=== PATIENT | female | born 1930 | race Caucasian/White ===

== ENCOUNTER 2018-07-17 20:17 | Outpatient (CLI) | payer MEDICARE, OTHER | END 2018-07-17 20:18 | disposition critical access hospital (66) | LOC: EMS 20:17 | PROVIDERS: ATTEND Surgery | DX: R55 Syncope and collapse (principal) | CPT/HCPCS: A0425; A0427 ==

== ENCOUNTER 2018-07-17 20:56 | Emergency (ER) | payer MEDICARE, OTHER ==
--- NOTE | 2018-07-17 21:10 | ED Physician Documentation ---
PD HPI SYNCOPE - Stated complaint Stated Complaint: SYNCOPE - History obtained from History obtained from: Patient - History of Present Illness Witnessed: Unwitnessed Timing - onset: Today Duration: Seconds Preceding symptoms: Light headed, Generalized weakness. No: Headache, Chest pain, Palpitations, Dyspnea, Abdominal pain Associated symptoms: No: Seizure, Incontinant of urine, Chest pain, Dyspnea, Abdominal pain Contributing factors: Just stood up. No: Recent med change, Decreased PO intake Injury occurred: Fell. No: Head injury, Neck injury Similar symptoms before: Diagnosis (had dyspnea and chest pain with lightheadedness when she had PE few years ago. Did not have syncope per se.) Recently seen: Not recently seen Review of Systems Constitutional: denies: Fever, Chills, Myalgias Nose: denies: Rhinorrhea / runny nose, Congestion Throat: denies: Sore throat Cardiac: denies: Chest pain / pressure, Palpitations Respiratory: denies: Cough GI: denies: Nausea, Vomiting, Diarrhea : denies: Dysuria Skin: denies: Rash, Lesions Musculoskeletal: denies: Neck pain, Back pain Neurologic: denies: Focal weakness, Numbness, Altered mental status, Headache Psychiatric: reports: Depressed PD PAST MEDICAL HISTORY - Past Medical History Cardiovascular: High cholesterol, Other Respiratory:  Endocrine/Autoimmune: None GI: None : None HEENT: None Psych: Anxiety Musculoskeletal: None Derm: None - Past Surgical History Past Surgical History: Yes General: Colonoscopy HEENT: Tonsil/Adenoidectomy Derm: Skin cancer surgery - Present Medications Home Medications: Ambulatory Orders Medication Instructions Recorded Confirmed Escitalopram [Lexapro] 10 mg PO DAILY 10/03/15 10/04/15 Guaifenesin [Mucinex] 1 tab PO BID 10/03/15 10/04/15 Oxycodone HCl 10 mg PO PRN PRN 10/03/15 10/03/15 Pravastatin Sodium [Pravachol] 40 mg PO DAILY 10/03/15 10/04/15 Rivaroxaban [Xarelto] 20 mg PO DAILY 10/03/15 10/04/15 - Allergies Allergies/Adverse Reactions: Allergies Allergy/AdvReac Type Severity Reaction Status Date / Time Sulfa (Sulfonamide Allergy Rash Verified 11/09/12 15:30 Antibiotics) - Social History Does the pt smoke?: No Smoking Status: Former smoker Does the pt drink ETOH?: Yes Does the pt have substance abuse?: No - POLST Patient has POLST: No PD ED PE NORMAL - Vitals Vital signs reviewed: Yes (appears younger than stated age. ) - General General: Alert and oriented X 3, No acute distress, Well developed/nourished - HEENT HEENT: Pharynx benign - Neck Neck: Supple, no meningeal sign, No adenopathy, No JVD - Cardiac Cardiac: RRR, No murmur - Respiratory Respiratory: Clear bilaterally - Abdomen Abdomen: Soft, Non tender - Back Back: No CVA TTP - Derm Derm: Normal color, Warm and dry - Extremities Extremities: No deformity, No tenderness to palpate, Normal ROM s pain - Neuro Neuro: Alert and oriented X 3, No motor deficit, Normal speech Results - Vitals Vitals: Vital Signs - 24 hr 07/17/18 07/17/18 07/17/18 23:13 23:17 23:52 Heart Rate 55 L Heart Rate [ 56 L Sitting] Heart Rate [ 65 Standing] Heart Rate [ 55 L Supine] Respiratory 16 16 Rate Blood Pressure 123/73 Blood Pressure 138/69 H [Sitting] Blood Pressure 124/68 [Standing] Blood Pressure 130/67 [Supine] O2 Saturation 99 Oxygen O2 Source Room air - EKG (time done) 20:59 Rate: Rate (enter#) (58) Rhythm: Sinus bradycardia [place]: Normal Intervals: Normal [place] QRS: Normal Ischemia: Normal ST segments. No: ST elevation c/w ischemia, ST depression - Labs Labs: Laboratory Tests 07/17/18 07/17/18 07/17/18 22:30 22:30 22:30 WBC 8.0 RBC 4.95 Hgb 14.8 Hct 45.2 MCV 91.2 MCH 29.9 MCHC 32.8 RDW 14.2 Plt Count 216 MPV 10.0 Neut # (Auto) 6.2 Lymph # (Auto) 1.2 L [place] # (Auto) 0.4 Eos # (Auto) 0.1 Baso # (Auto) 0.1 Absolute Nucleated RBC 0.01 Nucleated RBC % 0.1 D-Dimer Sodium 136 Potassium 3.6 Chloride 99 L Carbon Dioxide 24 Anion Gap 13.0 BUN 19 Creatinine 1.0 Estimated GFR (MDRD) 53 L Glucose 98 Calcium 9.8 Magnesium 2.4 Iron 36 TIBC 315 % Saturation 11 L Transferrin 225 Total Bilirubin 0.4 AST 26 ALT 28 Alkaline Phosphatase 69 Troponin I < 0.04 B-Natriuretic Peptide Total Protein 7.8 Albumin 4.3 Globulin 3.5 Albumin/Globulin Ratio 1.2 Lipase 32 07/17/18 07/17/18 22:30 22:50 WBC RBC Hgb Hct MCV MCH MCHC RDW Plt Count MPV Neut # (Auto) Lymph # (Auto) [place] # (Auto) Eos # (Auto) Baso # (Auto) Absolute Nucleated RBC Nucleated RBC % D-Dimer 183.7 L Sodium Potassium Chloride Carbon Dioxide Anion Gap BUN Creatinine Estimated GFR (MDRD) Glucose Calcium Magnesium Iron TIBC % Saturation Transferrin Total Bilirubin AST ALT Alkaline Phosphatase Troponin I B-Natriuretic Peptide 40 Total Protein Albumin Globulin Albumin/Globulin Ratio Lipase PD MEDICAL DECISION MAKING - ED course Complexity details: reviewed results, re-evaluated patient (she is feeling well here and subsequent postural vital signs showed normal labs. ), considered differential, d/w patient, d/w family Departure - Departure Disposition: Home, Self Care Clinical Impression: Postural syncope Condition: Stable Record reviewed to determine appropriate education?: Yes Instructions: ED Syncope Vasovagal Follow-Up: Kiersten King PA [Primary Care Provider] - Comments: Continue usual medications. Follow-up with your primary care if you have recurrent episodes of feelings of lightheadedness or palpitations at times. Return to the ER if full fainting episodes again. Discharge Date/Time: 07/17/18 23:56
[2018-07-17 22:39] LABS: BASOPHILS # (AUTO) 0.1 10^3/uL (0.0-0.1); EOSINOPHILS # (AUTO) 0.1 10^3/uL (0.0-0.7); EOSINOPHILS % (AUTO) 0.9 %; HGB - HEMOGLOBIN 14.8 g/dL (12.0-16.0); LYMPHOCYTES # (AUTO) 1.2 10^3/uL (1.5-3.5); LYMPHOCYTES % (AUTO) 15.4 %; MEAN CORPUSCULAR HEMOGLOBIN 29.9 pg (27.0-31.0); MEAN CORPUSCULAR HGB CONC 32.8 g/dL (32.0-36.0); MEAN CORPUSCULAR VOLUME 91.2 fL (81.0-99.0); MONOCYTES # (AUTO) 0.4 10^3/uL (0.0-1.0); MONOCYTES % (AUTO) 5.4 %; NEUTROPHILS # (AUTO) 6.2 10^3/uL (1.5-6.6); NEUTROPHILS % (AUTO) 77.3 %; PLT - PLATELET COUNT 216 10^3/uL (130-450); RED BLOOD COUNT 4.95 10^6/uL (4.20-5.40); RED CELL DISTRIBUTION WIDTH 14.2 % (12.0-15.0)
[2018-07-17 22:56] LABS: ALBUMIN 4.3 g/dL (3.2-5.5); ALBUMIN/GLOBULIN RATIO 1.2 (1.0-2.2); BILIRUBIN,TOTAL 0.4 mg/dL (0.2-1.0); CALCIUM 9.8 mg/dL (8.5-10.3); MAGNESIUM 2.4 mg/dL (1.7-2.8); TOTAL PROTEIN 7.8 g/dL (6.7-8.2)
[2018-07-17 23:53] VITALS: BP 130/67
== END 2018-07-17 23:56 | disposition home or self-care (01) ==
LOC: EDUNIT# → ED 20:56
DX: R55 Syncope and collapse (principal); E78.00 Pure hypercholesterolemia, unspecified; Z79.01 Long term (current) use of anticoagulants; Z87.891 Personal history of nicotine dependence
CPT/HCPCS: 36415; 80053; 83540; 83690; 83735; 83880; 84466; 84484; 85025; 85379; 93005; 99283; 99284

== ENCOUNTER 2018-07-21 09:35 | Emergency (ER) | payer MEDICARE, OTHER ==
--- NOTE | 2018-07-21 09:37 | ED Physician Documentation ---
PD HPI BACK PAIN - Stated complaint Stated Complaint: LT SIDE BACK PAIN - History obtained from History obtained from: Patient, Family - History of Present Illness Timing - onset: How many days ago (3) Timing - duration: Days Timing - details: Gradual onset Location: Lower, Left, Other (back pain) Quality: Pain, Aching. No: Spasm, Sharp, Tearing Associated symptoms: No: Fever, Weakness, Numbness, Incontinent of urine, Unable to urinate, Hematuria, Incontinent of stool Improves with: Rest Worsened by: Movement, Twisting, Palpation Contributing factors: Trauma, Anticoagulated (on Xarelto, patient fell a few days ago in the yard and landed on her Left back) Similar symptoms before: Diagnosis (fall) Recently seen: Emergency Dept (negative evaluaton and was sent home) Review of Systems Ten Systems: 10 systems reviewed and negative Constitutional: denies: Fever, Chills Cardiac: denies: Chest pain / pressure Respiratory: denies: Dyspnea GI: denies: Abdominal Pain, Nausea, Vomiting Skin: reports: Other (left back bruise) Musculoskeletal: reports: Back pain. denies: Neck pain, Extremity pain, Joint pain, Extremity swelling, Joint swelling Neurologic: denies: Generalized weakness, Focal weakness, Numbness, Head injury PD PAST MEDICAL HISTORY - Past Medical History Past Medical History: Yes Cardiovascular: High cholesterol, Other Respiratory:  Endocrine/Autoimmune: None GI: None : None HEENT: None Psych: Anxiety Musculoskeletal: None Derm: None - Past Surgical History Past Surgical History: Yes General: Colonoscopy HEENT: Tonsil/Adenoidectomy Derm: Skin cancer surgery - Present Medications Home Medications: Ambulatory Orders Medication Instructions Recorded Confirmed Escitalopram [Lexapro] 10 mg PO DAILY 10/03/15 10/04/15 Guaifenesin [Mucinex] 1 tab PO BID 10/03/15 10/04/15 Pravastatin Sodium [Pravachol] 40 mg PO DAILY 10/03/15 10/04/15 RX: Oxycodone HCl 10 mg PO PRN PRN 10/03/15 10/03/15 Rivaroxaban [Xarelto] 20 mg PO DAILY 10/03/15 10/04/15 Lidocaine Patch 5% [Lidoderm Patch] 1 patch TOP DAILY PRN #5 patch 07/21/18 - Allergies Allergies/Adverse Reactions: Allergies Allergy/AdvReac Type Severity Reaction Status Date / Time Sulfa (Sulfonamide Allergy Rash Verified 07/21/18 09:51 Antibiotics) - Social History Does the pt smoke?: No Smoking Status: Former smoker Does the pt drink ETOH?: Yes Does the pt have substance abuse?: No - Immunizations Immunizations are current?: Yes - POLST Patient has POLST: No PD ED PE NORMAL - Vitals Vital signs reviewed: Yes - General General: Alert and oriented X 3 - HEENT HEENT: Atraumatic - Neck Neck: Supple, no meningeal sign, No bony TTP, No JVD - Cardiac Cardiac: RRR, No murmur, No gallop, No rub - Respiratory Respiratory: No respiratory distress, Clear bilaterally - Abdomen Abdomen: Soft, Non tender, Non distended - Female Female : Deferred - Rectal Rectal: Deferred - Derm Derm: Normal color, Warm and dry, Other (Left posterior lateral ecchymosis, very small, about 4cm in size) - Extremities Extremities: No deformity, No tenderness to palpate, Normal ROM s pain, No edema, No calf tenderness / cord - Neuro Neuro: Alert and oriented X 3 Eye Opening: Spontaneous Motor: Obeys Commands Verbal: Oriented GCS Score: 15 - Psych Psych: Normal mood, Normal affect PD ED PE EXPANDED - Neck Neck: No tenderness. No: Limited ROM - Cardiac Cardiac: No: Chest wall TTP - Respiratory Respiratory: Clear to ausultation jere - Back Back: Normal exam, Normal ROM, Soft tissue tenderness (mild with deep palpation over L lower lateral back over a small bruise, no significant swelling), Other. No: Vertebral tenderness, Limited ROM, Straight leg raise + R, Straight leg ra ise + L Results - Vitals Vitals: Vital Signs - 24 hr 07/21/18 09:48 Temperature 36.2 C L Heart Rate 77 Respiratory 14 Rate Blood Pressure 128/79 O2 Saturation 98 Oxygen O2 Source Room air PD MEDICAL DECISION MAKING - ED course Complexity details: reviewed old records, reviewed results, considered differential, d/w patient, d/w family ED course: DDx - back strain, contusion, fracture, intraabdominal or retroperitoneal injury 87 y/o F with a ground level fall onto left lower back 3 days ago, was seen in the ED at that time and had no significant back pain but now for the last 2 days has Left lower back pain that gradually developed and worsened. Denies numbness, weakness, incontinence or urinary retention. No other red flags for back pain. Her pain is located directly over a very small bruise on her back. She is otherwise well but does take xarelto. She has no urinary symptoms and otherwise feels well. Given patient's gradual delayed onset, worsened pain with moving suspect and pain over the bruise i suspect this is due to a strain or contusion. Doubt significant chest back or intraabdominal injury. Discussed this with pt and return precautions. She is stable for outpt f/u. Will give a lidoderm patch for pain. Departure - Departure Disposition: Home, Self Care Clinical Impression: Contusion of lower back Condition: Stable Record reviewed to determine appropriate education?: Yes Instructions: ED Contusion Back Prescriptions: Lidocaine Patch 5% [Lidoderm Patch] 1 patch TOP DAILY PRN #5 patch PRN Reason: pain Comments: Your exam today is consistent with a low back contusion (bruise). The bruise on your back is fairly small and unlikely to be associated with any internal bleeding or injury. You can use warm compresses and the prescribed lidocaine patches and tylenol for pain. Return to the ED if any worsening pain, difficulty breathing or abdominal pain. Discharge Date/Time: 07/21/18 10:45
[2018-07-21 09:51] VITALS: BP 128/79
[2018-07-21] MEDS ORDERED: LIDOCAINE PATCH 5% TOP STA (10:34)
== END 2018-07-21 10:45 | disposition home or self-care (01) ==
LOC: ED 09:35
DX: S30.0XXD Contusion of lower back and pelvis, subsequent encounter (principal); Z87.891 Personal history of nicotine dependence
CPT/HCPCS: 99283; A9270

== ENCOUNTER 2019-03-18 11:55 | Outpatient (CLI) | payer MEDICARE, OTHER ==
--- NOTE | 2019-03-18 13:03 | CT Report ---
Reason: TOBACCO USE Procedure Date: 03/18/2019 Accession Number: [id number] / [id number] Procedure: CT - CHEST WO CPT Code: Final Report FULL RESULT: EXAM: CT CHEST EXAM DATE: 03/18/2019 12:28 PM. CLINICAL HISTORY: TOBACCO USE. COMPARISONS: CHEST ANGIO 11/09/2012 3:00 PM. TECHNIQUE: Routine helical CT imaging was performed through the chest. IV contrast: None. Reconstructions: Coronal and sagittal. In accordance with CT protocol optimization, one or more of the following dose reduction techniques were utilized for this exam: automated exposure control, adjustment of mA and/or KV based on patient size, or use of iterative reconstructive technique. FINDINGS: Lungs/Pleura: Increased lung markings are noted within the lung bases that Bibasilar infiltrates and less likely atelectasis. There is no pleural effusion or pneumothorax seen. Mediastinum: There is no pulmonary mass or lymphadenopathy. Bones: No focal bony lesion is identified. Visualized Abdomen: Ankle is noted within the gallbladder. There is no evidence of intrahepatic biliary duct dilatation. The remainder of the visualized upper abdominal organs demonstrated a normal noncontrast CT appearance Other: None. IMPRESSION: Probable bibasilar infiltrates that may be secondary to pneumonia. Atherosclerosis of the aorta and coronary arteries. Cholelithiasis without evidence of obstruction. RADIA
== END 2019-03-18 11:56 | disposition home or self-care (01) ==
LOC: DI 11:55
PROVIDERS: ATTEND Registered Nurse
DX: Z12.2 Encounter for screening for malignant neoplasm of respiratory organs (principal); Z87.891 Personal history of nicotine dependence; K80.20 Calculus of gallbladder without cholecystitis without obstruction
CPT/HCPCS: 71250

== ENCOUNTER 2020-12-03 11:45 | Emergency (ER) | payer MEDICARE, OTHER ==
[2020-12-03 12:23] LABS: BASOPHILS # (AUTO) 0.1 10^3/uL (0.0-0.1); BASOPHILS % (AUTO) 1.1 %; EOSINOPHILS # (AUTO) 0.1 10^3/uL (0.0-0.7); EOSINOPHILS % (AUTO) 1.6 %; HGB - HEMOGLOBIN 14.6 g/dL (12.0-16.0); LYMPHOCYTES # (AUTO) 1.5 10^3/uL (1.5-3.5); LYMPHOCYTES % (AUTO) 26.9 %; MEAN CORPUSCULAR HEMOGLOBIN 30.7 pg (27.0-31.0); MEAN CORPUSCULAR HGB CONC 32.4 g/dL (32.0-36.0); MEAN CORPUSCULAR VOLUME 94.7 fL (81.0-99.0); MEAN PLATELET VOLUME 10.5 fL (7.9-10.8); MONOCYTES # (AUTO) 0.5 10^3/uL (0.0-1.0); MONOCYTES % (AUTO) 9.1 %; NEUTROPHILS # (AUTO) 3.5 10^3/uL (1.5-6.6); NEUTROPHILS % (AUTO) 60.6 %; PLT - PLATELET COUNT 238 10^3/uL (130-450); RED BLOOD COUNT 4.75 10^6/uL (4.20-5.40); RED CELL DISTRIBUTION WIDTH 14.8 % (12.0-15.0); WHITE BLOOD COUNT 5.7 x10^3/uL (4.8-10.8)
--- NOTE | 2020-12-03 12:28 | ED Physician Documentation ---
PD HPI SYNCOPE - Stated complaint Stated Complaint: DIZZINESS,SYNCOPE - Chief complaint Chief Complaint: Neuro - History obtained from History obtained from: Patient - Additional information Additional information: Is a rudy 89-year-old woman who appears younger than stated age. About 6 weeks ago she quit smoking. Which of course is great but she started increasing her alcohol consumption around the same time. For the last couple of weeks she has had episodic dizziness and disequilibrium. Not vertigo or lightheadedness. Is not bad enough that she started using a cane or a walker, she just feels unsteady. It is not associated with headaches or head injury. This culminated in last night, she had a few bourbons and then lost track of time, she states she knows she was on the computer from her search history, but she does not remember any of it. When she awoke at 4 AM she ate a marijuana cookie. She was pretty sure this was after she blacked out, but not convinced. Review of Systems Ten Systems: 10 systems reviewed and negative Constitutional: denies: Fever, Chills Cardiac: reports: Reviewed and negative Respiratory: reports: Reviewed and negative PD PAST MEDICAL HISTORY - Past Medical History Cardiovascular: High cholesterol, Other Respiratory:  Endocrine/Autoimmune: None GI: None : None HEENT: None Psych: Anxiety Musculoskeletal: None Derm: None - Past Surgical History Past Surgical History: Yes General: Colonoscopy HEENT: Tonsil/Adenoidectomy Derm: Skin cancer surgery - Present Medications Home Medications: Ambulatory Orders Medication Instructions Recorded Confirmed Escitalopram [Lexapro] 10 mg PO DAILY 10/03/15 10/04/15 Guaifenesin [Mucinex] 1 tab PO BID 10/03/15 10/04/15 Oxycodone HCl 10 mg PO PRN PRN 10/03/15 10/03/15 Pravastatin Sodium [Pravachol] 40 mg PO DAILY 10/03/15 10/04/15 Rivaroxaban [Xarelto] 20 mg PO DAILY 10/03/15 10/04/15 Lidocaine Patch 5% [Lidoderm Patch] 1 patch TOP DAILY PRN #5 patch 07/21/18 Venlafaxine ER [Effexor ER] 37.5 mg PO DAILY #30 12/03/20 - Allergies Allergies/Adverse Reactions: Allergies Allergy/AdvReac Type Severity Reaction Status Date / Time Sulfa (Sulfonamide Allergy Rash Verified 12/03/20 11:58 Antibiotics) - Social History Does the pt smoke?: No Smoking Status: Former smoker Does the pt drink ETOH?: Yes Does the pt have substance abuse?: No - Immunizations Immunizations are current?: Yes - POLST Patient has POLST: No PD ED PE NORMAL - Vitals Vital signs reviewed: Yes - General General: Alert and oriented X 3, No acute distress - HEENT HEENT: PERRL, EOMI - Neck Neck: Supple, no meningeal sign, No bony TTP - Cardiac Cardiac: RRR, No murmur - Respiratory Respiratory: No respiratory distress, Clear bilaterally - Abdomen Abdomen: Normal bowel sounds, Soft, Non tender - Back Back: No CVA TTP, No spinal TTP - Derm Derm: Normal color, Warm and dry - Extremities Extremities: No deformity, No tenderness to palpate, Normal ROM s pain, Other (NIH stroke scale is 0) - Psych Psych: Normal mood, Normal affect Results - Vitals Vitals: Vital Signs - 24 hr 12/03/20 12/03/20 11:52 12:28 Temperature 36.6 C Heart Rate 63 56 L Respiratory 16 18 Rate Blood Pressure 181/75 H 169/68 H O2 Saturation 96 Oxygen O2 Source Room air - EKG (time done) 1204 Rate: Rate (enter#) (62) Rhythm: NSR [place]: LAD Intervals: Prolonged CT QRS: Normal Ischemia: Non specific changes. No: ST elevation c/w ischemia, ST depression Computer interpretation: Agree with computer - Labs Labs: Laboratory Tests 12/03/20 12/03/20 12/03/20 12:15 12:15 12:15 WBC 5.7 RBC 4.75 Hgb 14.6 Hct 45.0 MCV 94.7 MCH 30.7 MCHC 32.4 RDW 14.8 Plt Count 238 MPV 10.5 Neut # (Auto) 3.5 Lymph # (Auto) 1.5 [place] # (Auto) 0.5 Eos # (Auto) 0.1 Baso # (Auto) 0.1 Absolute Nucleated RBC 0.00 Nucleated RBC % 0.0 Sodium 136 Potassium 4.7 Chloride 100 L Carbon Dioxide 27 Anion Gap 9.0 BUN 22 H Creatinine 1.4 H Estimated GFR (MDRD) 35 L Glucose 106 H POC Whole Bld Glucose Calcium 9.5 Total Bilirubin 0.9 AST 21 ALT 22 Alkaline Phosphatase 74 Troponin I High Sens 5.4 Total Protein 7.2 Albumin 3.9 Globulin 3.3 Albumin/Globulin Ratio 1.2 Lipase 28 12/03/20 12:27 WBC RBC Hgb Hct MCV MCH MCHC RDW Plt Count MPV Neut # (Auto) Lymph # (Auto) [place] # (Auto) Eos # (Auto) Baso # (Auto) Absolute Nucleated RBC Nucleated RBC % Sodium Potassium Chloride Carbon Dioxide Anion Gap BUN Creatinine Estimated GFR (MDRD) Glucose POC Whole Bld Glucose 104 H Calcium Total Bilirubin AST ALT Alkaline Phosphatase Troponin I High Sens Total Protein Albumin Globulin Albumin/Globulin Ratio Lipase PD MEDICAL DECISION MAKING - ED course ED course: 82-year-old woman presents after syncopal/blackout episode last night that was associated with alcohol and marijuana use. She is modestly hypertensive here but otherwise her exam is normal with a normal head CT. Some level of prerenal insufficiency for which she was given some IV fluids. On reevaluation prior to planned discharge she admitted to suicidal ideation ongoing for a few weeks despite taking Lexapro and being in counseling. No plan and does not feel like she would actually act on it. Social work consult placed. Seen by social work, contracted for safety. She would like to try different antidepressant pending follow-up with her PCP and given her symptoms and SNRI seems appropriate and we will switch her to low-dose venlafaxine. Departure - Departure Disposition: 01 Home, Self Care Clinical Impression: Syncope Qualifiers: Syncope type: unspecified Qualified Code(s): R55 - Syncope and collapse Depression Qualifiers: Depression Type: major depressive disorder Major depression recurrence: recurrent Active/Remission status: currently active Major depression episode severity: moderate Qualified Code(s): F33.1 - Major depressive disorder, recurrent, moderate Condition: Good Record reviewed to determine appropriate education?: Yes Instructions: ED Fainting Unkn Cause, ED Depression Prescriptions: Venlafaxine ER [Effexor ER] 37.5 mg PO DAILY #30 Comments: There is some today we did labs, CAT scan and other work-up. We found you to be modestly dehydrated and gave you some IV fluids. CAT scan of your head was negative. The rest of her labs were normal. Try to cut back on the alcohol and avoid other things that might cause you to pass out. Return for new or worsening symptoms. Follow-up with your primary care physician, next available appointment. As discussed, you can stop your Lexapro and switch over to the venlafaxine. Follow-up with your doctor on return home from your trip to discuss how it is going and see for refills. Return for new or worsening symptoms.
[2020-12-03 12:42] LABS: ALBUMIN 3.9 g/dL (3.2-5.5); ALBUMIN/GLOBULIN RATIO 1.2 (1.0-2.2); BILIRUBIN,TOTAL 0.9 mg/dL (0.2-1.0); CALCIUM 9.5 mg/dL (8.5-10.3); CREATININE 1.4 mg/dL (0.4-1.0); POTASSIUM 4.7 mmol/L (3.5-5.0); TOTAL PROTEIN 7.2 g/dL (6.7-8.2)
[2020-12-03 12:53] VITALS: BP 169/68
[2020-12-03] MEDS ORDERED: SODIUM CHLORIDE 0.9% 1,000 ML IV STA (13:02)
--- NOTE | 2020-12-03 13:16 | CT Report ---
PROCEDURE: HEAD WO INDICATIONS: dizzy TECHNIQUE: Noncontrast 4.5 mm thick angled axial sections acquired from the foramen magnum to the vertex. For r adiation dose reduction, the following was used: automated exposure control, adjustment of mA and/or kV according to patient size. COMPARISON: None FINDINGS: Image quality: Excellent. CSF spaces: Basal cisterns are patent. No extra-axial fluid collections. The ventricles are symmet erick in size and shape. Brain: No intracranial bleeds or masses. There is cerebral volume loss for age, with resultant vent ricular and sulcal prominence. There are periventricular and deep white matter chronic small vessel ischemic changes. There is intracranial internal carotid artery atherosclerosis. Skull and face: Calvarium and visualized facial bones appear intact, without suspicious lesions. Sinuses: Visualized sinuses and mastoids are clear. IMPRESSION: No acute intracranial disease process. Reviewed by: Clara Garrido MD, PhD on 12/03/2020 1:15 PM PDT Approved by: Clara Garrido MD, PhD on 12/03/2020 1:15 PM PDT Station ID: [id number]
[2020-12-03 14:43] LABS: MUDS CUTOFF CONCENTRATIONS CUTOFF CONC BELOW:
[2020-12-03 14:58] LABS: BILIRUBIN,URINE NEGATIVE (NEGATIVE); GLUCOSE, URINE (UA) NEGATIVE (NEGATIVE); KETONES,URINE (UA) NEGATIVE (NEGATIVE); LEUKOCYTE ESTERASE, URINE MODERATE (NEGATIVE); NITRITE,URINE NEGATIVE (NEGATIVE); OCCULT BLOOD,URINE NEGATIVE (NEGATIVE); PH,URINE 5.5 PH (5.0-7.5); PROTEIN,URINE NEGATIVE (NEGATIVE); UROBILINOGEN,URINE 0.2 (NORMAL) E.U./dL (NORMAL)
[2020-12-03 15:16] LABS: CLARITY,URINE CLEAR (CLEAR)
[2020-12-03 15:17] LABS: AMPHETAMINE SCREEN,URINE NEGATIVE (NEGATIVE); BACTERIA,URINE Rare /HPF (None Seen); BARBITURATE SCREEN,UR NEGATIVE (NEGATIVE); BENZODIAZEPINES SCREEN, URINE NEGATIVE (NEGATIVE); COCAINE SCREEN URINE NEGATIVE (NEGATIVE); METHADONE SCREEN, URINE NEGATIVE (NEGATIVE); METHAMPHETAMINES SCREEN, URINE NEGATIVE (NEGATIVE); OPIATE SCREEN, URINE NEGATIVE (NEGATIVE); OXYCODONE SCREEN, URINE NEGATIVE (NEGATIVE); PROPOXYPHENE SCREEN, URINE NEGATIVE (NEGATIVE); SQUAMOUS EPITHELIAL CELL,UR MANY Squamous (<= Few); THC CANNABINOID SCREEN, URINE POSITIVE (NEGATIVE); TRICYCLIC ANTIDEPRESSANT,URINE NEGATIVE (NEGATIVE)
== END 2020-12-03 14:50 | disposition home or self-care (01) ==
LOC: ED 11:45
DX: R55 Syncope and collapse (principal); E86.0 Dehydration; N28.9 Disorder of kidney and ureter, unspecified; F33.1 Major depressive disorder, recurrent, moderate; R45.851 Suicidal ideations; F12.90 Cannabis use, unspecified, uncomplicated; Z72.89 Other problems related to lifestyle; I10 Essential (primary) hypertension; I44.0 Atrioventricular block, first degree; Z87.891 Personal history of nicotine dependence; Z79.01 Long term (current) use of anticoagulants
CPT/HCPCS: 36415; 80053; 80306; 81001; 81003; 83690; 84484; 85025; 87086; 93005; 99284